=== PATIENT | male | born 1975 | race Caucasian/White ===

== ENCOUNTER 2016-06-07 10:39 | Outpatient (CLI) | payer OTHER ==
--- NOTE | 2016-06-07 13:47 | DIAGNOSTIC IMAGING REPORT ---
PROCEDURE: XR BARIUM SWALLOW INDICATION: Dysphagia. TECHNIQUE: Double contrast study. Fluoroscopy time, 2.5 minutes; 2046.06 mGy. 58 fluoroscopic images (including cine fluoroscopy of the esophagus). COMPARISON: None. FINDINGS: Pharyngoesophagus is normal. No constricting or polypoid lesions. No evidence of Zenker's diverticulum. There is a small sliding hiatal hernia with moderate to marked gastroesophageal reflux. Transverse striations of the distal esophagus ("feline" esophagus) are transient and represents a normal variant. Esophagus is otherwise normal. IMPRESSION: 1. Normal pharyngoesophagus. 2. Small sliding hiatal hernia with moderate to marked gastroesophageal reflux. 3. "Feline" transverse striations of the distal esophagus (esophageal "shiver") represents a normal variant, although can be associated with reflux. 4. Otherwise negative esophagram. 5. Findings discussed with the patient.
[2016-06-08] MEDS ORDERED: LISINOPRIL10 MG PO (18:17)
[2016-06-08] MEDS ORDERED: OMEPRAZOLE20 M1 PO (18:18)
== END 2016-06-07 23:00 ==
LOC: XR SRH 10:39
DX: K21.9 Gastro-esophageal reflux disease without esophagitis (principal)